=== PATIENT | male | born 1980 | race Hispanic/Latino ===

== ENCOUNTER 2020-06-17 09:33 | Inpatient (IN) | payer MEDICAID, OTHER ==
[~2020-06-17] VITALS: Ht 170.2 cm; Wt 133.5 kg
[2020-06-17] MEDS ORDERED: LORAZEPAM 2 MG/ML 1 ML VIAL ONE ×2 (09:36→09:42)
[2020-06-17 09:52] LABS: BASOPHILS % (AUTO) 0.8 % (0.0-5.0); EOSINOPHILS % (AUTO) 5.4 % (0.0-8.0); HEMATOCRIT 50.2 % (42-54); LYMPHOCYTES % (AUTO) 49.7 % (21.0-51.0); MEAN CORPUSCULAR HGB CONC 33.1 g/dL (32.0-36.0); MEAN CORPUSCULAR VOLUME 96.7 fL (79-99); MONOCYTES % (AUTO) 6.8 % (3.0-13.0); NEUTROPHILS % (AUTO) 36.7 % (40.0-77.0); PLATELET COUNT (AUTO) 386 K/uL (130-400); RED BLOOD CELL COUNT(AUTO) 5.19 MIL/uL (4.50-6.20); RED CELL DISTRIBUTION WIDTH 12.3 % (11.0-15.5); WHITE BLOOD COUNT (AUTO) 18.6 K/uL (4.8-10.8)
[2020-06-17] MEDS ORDERED: LEVETIRACETAM 500 MG/5 ML SD VIAL IV ONE (09:55)
[2020-06-17 10:03] LABS: CREATININE 1.3 mg/dL (0.5-1.5); POTASSIUM 3.4 mmol/L (3.5-5.1)
[2020-06-17 10:07] LABS: ALBUMIN 4.3 g/dL (3.5-5.0); BILIRUBIN,TOTAL 0.3 mg/dL (0.2-1.0); PHENYTOIN (DILANTIN) 4.1 mcg/mL (10.0-20.0); TOTAL PROTEIN, SERUM 8.7 g/dL (6.0-8.3)
[2020-06-17 10:08] LABS: CARBAMAZEPINE (TEGRETOL) 6.1 mcg/mL (4.0-12.0)
[2020-06-17] MEDS ORDERED: FOSPHENYTOIN SODIUM 500 MG/10ML VIAL IJ ONE (10:43)
[2020-06-17] MEDS ORDERED: SODIUM CHLORIDE 0.9% 250 ML IV ONE (10:44)
[2020-06-17 13:48] LABS: APPEARANCE,URINE Clear (CLEAR); BILIRUBIN,URINE Negative (NEGATIVE); COLOR,URINE Yellow (YELLOW); GLUCOSE, URINE (UA) Negative (NEGATIVE); KETONES,URINE Negative (NEGATIVE); LEUKOCYTE ESTERASE ,URINE Negative (NEGATIVE); NITRATE,URINE Negative (NEGATIVE); OCCULT BLOOD,URINE Trace (NEGATIVE); PROTEIN,URINE POS 1+ mg/dL (NEGATIVE); UROBILINOGEN,URINE 0.2 mg/dL (0.2-1.0)
[2020-06-17 13:54] LABS: AMPHET/METH SCREEN,URINE NEGATIVE (NEGATIVE); BARBITURATE SCREEN, URINE NEGATIVE (NEGATIVE); BENZODIAZEPINES SCREEN,URINE NEGATIVE (NEGATIVE); CANNABINOID SCREEN,URINE NEGATIVE (NEGATIVE); COCAINE SCREEN,URINE NEGATIVE (NEGATIVE); OPIATE SCREEN,URINE NEGATIVE (NEGATIVE); PHENCYCLIDINE SCREEN,URINE NEGATIVE (NEGATIVE)
[2020-06-17 14:03] LABS: BACTERIA,URINE Rare /HPF (None Seen); RBC,URINE 0-1 /HPF (0-1); SQUAMOUS EPITHELIAL CELL,UR Rare /HPF (0-2); WBC,URINE 0-1 /HPF (0-1)
[2020-06-17] MEDS ORDERED: LORAZEPAM 2 MG/ML 1 ML VIAL IVP PRN (19:00)
[2020-06-17] MEDS ORDERED: ACETAMINOPHEN 325 MG TAB PO PRN (19:00)
[2020-06-17] MEDS ORDERED: NITROGLYCERIN 0.4 MG SL TAB SL PRN (19:00)
[2020-06-17] MEDS ORDERED: LACTULOSE 20 GM/30 ML UDCUP PO PRN (19:00)
[2020-06-17] MEDS ORDERED: ONDANSETRON HCL 4 MG/2 ML VIAL IV PRN (19:00)
[2020-06-17] MEDS: POTASSIUM CHLORIDE 20 MEQ ERTAB PO SCH (19:00)
[2020-06-17] MEDS ORDERED: POTASSIUM CHLORIDE 20 MEQ ERTAB PO ONE (20:23)
[2020-06-17] MEDS ORDERED: LEVETIRACETAM 500 MG TABLET PO ONE (20:24)
[2020-06-17 20:36] LABS: ALBUMIN 3.5 g/dL (3.5-5.0); BILIRUBIN,DIRECT 0.1 mg/dL (0.0-0.3); BILIRUBIN,TOTAL 0.3 mg/dL (0.2-1.0); THYROID STIMULATING HORMONE 1.17 uIU/mL (0.36-3.74)
[2020-06-17] MEDS: LEVETIRACETAM 500 MG TABLET PO SCH (21:00)
[2020-06-17] MEDS ORDERED: POTASSIUM CHLORIDE 20 MEQ ERTAB PO SCH (23:00)
[2020-06-18 04:00] VITALS: BP 127/73
[2020-06-18] MEDS ORDERED: CARB200T6 PO ×2 (04:22)
[2020-06-18] MEDS ORDERED: PHEN100C9 PO (04:22)
[2020-06-18 06:45] LABS: BASOPHILS % (AUTO) 0.9 % (0.0-5.0); EOSINOPHILS % (AUTO) 6.2 % (0.0-8.0); HEMATOCRIT 38.8 % (42-54); LYMPHOCYTES % (AUTO) 38.1 % (21.0-51.0); MEAN CORPUSCULAR HEMOGLOBIN 32.2 pg (27.0-33.0); MEAN CORPUSCULAR HGB CONC 35.6 g/dL (32.0-36.0); MEAN CORPUSCULAR VOLUME 90.4 fL (79-99); MONOCYTES % (AUTO) 7.9 % (3.0-13.0); NEUTROPHILS % (AUTO) 46.7 % (40.0-77.0); PLATELET COUNT (AUTO) 258 K/uL (130-400); RED BLOOD CELL COUNT(AUTO) 4.29 MIL/uL (4.50-6.20); RED CELL DISTRIBUTION WIDTH 12.2 % (11.0-15.5); WHITE BLOOD COUNT (AUTO) 9.4 K/uL (4.8-10.8)
[2020-06-18 07:00] LABS: ALBUMIN 3.2 g/dL (3.5-5.0); BILIRUBIN,TOTAL 0.3 mg/dL (0.2-1.0); POTASSIUM 3.5 mmol/L (3.5-5.1); TOTAL PROTEIN, SERUM 6.8 g/dL (6.0-8.3)
[2020-06-18] MEDS ORDERED: LORAZEPAM 2 MG/ML 1 ML VIAL IVP PRN (07:00)
[2020-06-18 08:00] VITALS: BP 100/58
[2020-06-18] MEDS: LEVETIRACETAM 500 MG TABLET PO SCH ×2 (09:14→20:46)
[2020-06-18] MEDS: ENOXAPARIN SODIUM 30 MG/0.3 ML SQ SCH (09:15)
[2020-06-18] MEDS: CARBAMAZEPINE 200 MG TAB.ER.12H PO SCH ×2 (10:19→20:46)
[2020-06-18] MEDS: PHENYTOIN SODIUM 100 MG ERCAP PO SCH ×2 (10:19→20:46)
[2020-06-18 11:00] VITALS: BP 121/71
--- NOTE | 2020-06-18 13:50 | NUR ---
DEA MENDIOLA Spoke to patient's friend (Jill Christie) over the phone at patient's primary number on file. As per Jill, patient is independent with ADLs prior to this admission, has no dme or home services. Jill to assist with transportation at discharge. Preferred pharmacy is [facility] in [place]. CM to follow up. Addendum: 06/18/20 at 1353 by NAUN BIRCH Amended: Links added.
[2020-06-18 16:00] VITALS: BP_SYST 165; BP_SYST 99; BP_DIAS 51; BP_DIAS 54
[2020-06-18] MEDS: POTASSIUM CHLORIDE 20 MEQ ERTAB PO SCH (18:44)
--- NOTE | 2020-06-18 19:38 | NUR ---
DR. WELDON UPDATE DR. WELDON REQUESTED HE BE UPDATED ON MRI RESULTS VIA TEXT. RESULTS WERE SENT TO DR. WELDON AT APPROX 1147 HOURS BY TEXT.
[2020-06-18 20:01] VITALS: BP 114/87
[2020-06-19 00:12] VITALS: BP 114/70
[2020-06-19 04:00] VITALS: BP 115/80
[2020-06-19 05:40] LABS: BASOPHILS % (AUTO) 0.7 % (0.0-5.0); EOSINOPHILS % (AUTO) 6.2 % (0.0-8.0); HEMATOCRIT 39.8 % (42-54); LYMPHOCYTES % (AUTO) 42.3 % (21.0-51.0); MEAN CORPUSCULAR HEMOGLOBIN 31.7 pg (27.0-33.0); MEAN CORPUSCULAR HGB CONC 35.2 g/dL (32.0-36.0); MEAN CORPUSCULAR VOLUME 90.2 fL (79-99); MONOCYTES % (AUTO) 6.1 % (3.0-13.0); NEUTROPHILS % (AUTO) 44.4 % (40.0-77.0); PLATELET COUNT (AUTO) 261 K/uL (130-400); RED BLOOD CELL COUNT(AUTO) 4.41 MIL/uL (4.50-6.20); RED CELL DISTRIBUTION WIDTH 11.9 % (11.0-15.5); WHITE BLOOD COUNT (AUTO) 9.8 K/uL (4.8-10.8)
[2020-06-19 05:57] LABS: ALBUMIN 3.3 g/dL (3.5-5.0); BILIRUBIN,TOTAL 0.2 mg/dL (0.2-1.0); POTASSIUM 3.5 mmol/L (3.5-5.1); TOTAL PROTEIN, SERUM 6.9 g/dL (6.0-8.3)
[2020-06-19 07:55] VITALS: BP 126/77
--- NOTE | 2020-06-19 08:15 | NUR ---
AM ASSESSMENT PT LAYING IN BED, WATCHING TV. A/O X 3. NO SOB. NO DISTRESS NOTED. DENIES CHEST PAIN OR DISCOMFORT. TELE: SR. DENIES N/V AND/OR DIARRHEA. UP AD ADRI. SEIZURE PRECAUTIONS IN PLACE. INSTRUCTED TO CALL FOR ASSISTANCE. CALL ADDIE W/IN REACH.
[2020-06-19] MEDS: CARBAMAZEPINE 200 MG TAB.ER.12H PO SCH (08:43)
[2020-06-19] MEDS: LEVETIRACETAM 500 MG TABLET PO SCH (08:43)
[2020-06-19] MEDS: PHENYTOIN SODIUM 100 MG ERCAP PO SCH (08:43)
[2020-06-19] MEDS: ENOXAPARIN SODIUM 30 MG/0.3 ML SQ SCH (08:49)
[2020-06-19] MEDS ORDERED: PHENY100 PO ×2 (10:39)
[2020-06-19] MEDS ORDERED: CARB-119 PO ×2 (10:39)
[2020-06-19] MEDS ORDERED: LEVE-43 PO ×2 (10:39)
--- NOTE | 2020-06-19 11:26 | NUR ---
MD NOTIFICATION [facility] TOT 476. DR ARIZA NOTIFIED. MAY CONTINUE TO DISCHARGE PT HOME TODAY.
[2020-06-19 11:38] VITALS: BP 125/69
--- NOTE | 2020-06-19 12:43 | NUR ---
DISCHARGE VERBAL & WRITTEN DISCHARGE INSTRUCTIONS REVIEWED & GIVEN TO PT. QUESTIONS ENCOURAGED & CLARIFIED. PROPER CARE & MGT OF SEIZURES REVIEWED. NEW PRESCRIBED MEDICATIONS REVIEWED W/PT. PRESCRIPTION GIVEN TO PT. SIGNED COPY OF PRESCRIPTION PLACED IN CHART. TELE MARTÍNEZ REMOVED. IV DC'D. PT TO GATHER PERSONAL BELONGINGS. WILL NOTIFY STAFF WHEN READY TO BE TAKEN TO PRIVATE VEHICLE.
--- NOTE | 2020-06-19 12:56 | NUR ---
RELEASE OF MEDICAL RECORDS PT SPOKE TO MEDICAL RECORDS REGARDING RELEASE OF RECORDS FOR F/U W/NEUROLOGIST. PT TO FILL UP & SIGN RELEASE OF MEDICAL RECORDS FORM. INFORMATION TO WHO MEDICAL INFO MAY BE RELEASED TO BE WRITTEN IN FORM. FORM FILLED OUT & SIGNED BY PT. FORM PLACED IN FRONT OF CHART. PT INFORMED MEDICAL RECORDS TO CALL WHEN RECORD READY FOR RING FACER.
== END 2020-06-19 13:35 | disposition home or self-care (01) | DRG 101 ==
LOC: EDH 09:33 → EDHIP 09:34 → 4AH 06-18 02:30
PROVIDERS: ADMIT Hospitalist; ATTEND Hospitalist
DX: G40.911 Epilepsy, unspecified, intractable, with status epilepticus (principal); Z68.42 Body mass index [BMI] 45.0-49.9, adult; E66.9 Obesity, unspecified; E11.9 Type 2 diabetes mellitus without complications; Z87.828 Personal history of other (healed) physical injury and trauma
CPT/HCPCS: 36415; 70450; 70551; 71045; 80053; 80076; 80156; 80185; 80305; 81001; 82140; 82550; 84443; 85025; 93306; 93356; G0378; J1650; J1953; J2060; J7050; Q2009

== ENCOUNTER 2020-06-20 04:19 | Emergency (ER) | payer SELFPAY ==
[~2020-06-20 04:19] MED LIST: CARB-119 PO; CARB200T6 PO; LEVE-43 PO; PHEN100C9 PO; PHENY100 PO
[2020-06-20] MEDS ORDERED: LEVETIRACETAM 500 MG/5 ML SD VIAL IV ONE (04:47)
[2020-06-20 05:01] LABS: BASOPHILS % (AUTO) 0.8 % (0.0-5.0); EOSINOPHILS % (AUTO) 5.8 % (0.0-8.0); HEMATOCRIT 42.8 % (42-54); LYMPHOCYTES % (AUTO) 38.3 % (21.0-51.0); MEAN CORPUSCULAR HEMOGLOBIN 32.4 pg (27.0-33.0); MEAN CORPUSCULAR HGB CONC 35.7 g/dL (32.0-36.0); MEAN CORPUSCULAR VOLUME 90.7 fL (79-99); MONOCYTES % (AUTO) 6.1 % (3.0-13.0); NEUTROPHILS % (AUTO) 48.7 % (40.0-77.0); PLATELET COUNT (AUTO) 310 K/uL (130-400); RED BLOOD CELL COUNT(AUTO) 4.72 MIL/uL (4.50-6.20); WHITE BLOOD COUNT (AUTO) 10.4 K/uL (4.8-10.8)
[2020-06-20 05:17] LABS: POTASSIUM 3.8 mmol/L (3.5-5.1)
[2020-06-20 05:20] LABS: ALBUMIN 3.8 g/dL (3.5-5.0); BILIRUBIN,TOTAL 0.3 mg/dL (0.2-1.0); PHENYTOIN (DILANTIN) 6.7 mcg/mL (10.0-20.0); TOTAL PROTEIN, SERUM 7.8 g/dL (6.0-8.3)
[2020-06-20] MEDS ORDERED: PHENYTOIN SODIUM 100 MG ERCAP PO ONE (05:28)
== END 2020-06-20 06:50 | disposition home or self-care (01) ==
LOC: EDH 04:19
DX: G40.89 Other seizures (principal); R20.2 Paresthesia of skin; E11.9 Type 2 diabetes mellitus without complications; Z72.0 Tobacco use
CPT/HCPCS: 36415; 80053; 80185; 85025; 96365; 96366; 99284; J1953

== ENCOUNTER 2020-06-22 06:35 | Inpatient (IN) | payer OTHER ==
[~2020-06-22] VITALS: Ht 167.6 cm; Wt 130.0 kg
[~2020-06-22 06:35] MED LIST changes: -CARB200T6 PO; -PHEN100C9 PO
[2020-06-22 07:49] LABS: BASOPHILS % (AUTO) 0.9 % (0.0-5.0); EOSINOPHILS % (AUTO) 8.8 % (0.0-8.0); HEMATOCRIT 43.3 % (42-54); LYMPHOCYTES % (AUTO) 31.3 % (21.0-51.0); MEAN CORPUSCULAR HEMOGLOBIN 31.7 pg (27.0-33.0); MEAN CORPUSCULAR HGB CONC 35.1 g/dL (32.0-36.0); MEAN CORPUSCULAR VOLUME 90.4 fL (79-99); MONOCYTES % (AUTO) 6.2 % (3.0-13.0); NEUTROPHILS % (AUTO) 52.5 % (40.0-77.0); PLATELET COUNT (AUTO) 296 K/uL (130-400); RED BLOOD CELL COUNT(AUTO) 4.79 MIL/uL (4.50-6.20); RED CELL DISTRIBUTION WIDTH 12.2 % (11.0-15.5); WHITE BLOOD COUNT (AUTO) 9.4 K/uL (4.8-10.8)
[2020-06-22 08:13] LABS: ALBUMIN 3.8 g/dL (3.5-5.0); BILIRUBIN,TOTAL 0.2 mg/dL (0.2-1.0); POTASSIUM 3.5 mmol/L (3.5-5.1); TOTAL PROTEIN, SERUM 7.8 g/dL (6.0-8.3)
[2020-06-22 08:31] LABS: PHENYTOIN (DILANTIN) 6.7 mcg/mL (10.0-20.0)
[2020-06-22] MEDS ORDERED: PHENYTOIN SODIUM 100 MG ERCAP PO SCH (09:30)
[2020-06-22] MEDS ORDERED: PHENYTOIN SODIUM 100 MG ERCAP PO ONE (10:21)
[2020-06-22] MEDS ORDERED: MEPERIDINE-PF 25 MG/ML SYG IV PRN (11:45)
[2020-06-22] MEDS ORDERED: DEXTROSE 50%-WATER 50 ML DISP.SYRIN IV PRN (12:00)
[2020-06-22] MEDS ORDERED: GLUCAGON 1MG KIT 1 MG ML IM PRN (12:00)
[2020-06-22 14:06] LABS: HEMOGLOBIN A1C 5.5 % (4.0-6.0)
[2020-06-22] MEDS ORDERED: INSULIN HUMULIN R 100 UNIT/ML 3ML SQ SCH (16:30)
[2020-06-22 17:54] LABS: APPEARANCE,URINE Clear (CLEAR); BILIRUBIN,URINE Negative (NEGATIVE); COLOR,URINE Yellow (YELLOW); GLUCOSE, URINE (UA) Negative (NEGATIVE); KETONES,URINE Negative (NEGATIVE); LEUKOCYTE ESTERASE ,URINE Negative (NEGATIVE); NITRATE,URINE Negative (NEGATIVE); OCCULT BLOOD,URINE Negative (NEGATIVE); PH,URINE 5.5 (5.0-8.0); PROTEIN,URINE POS 1+ mg/dL (NEGATIVE); UROBILINOGEN,URINE 0.2 mg/dL (0.2-1.0)
[2020-06-22 18:29] LABS: BACTERIA,URINE Rare /HPF (None Seen); MUCUS,URINE Few LPF (None Seen); RBC,URINE 0-1 /HPF (0-1); SQUAMOUS EPITHELIAL CELL,UR Rare /HPF (0-2); WBC,URINE 0-1 /HPF (0-1)
[2020-06-22] MEDS ORDERED: FAMOTIDINE/PF 20 MG/2 ML VIAL IV ONE (20:18)
[2020-06-22] MEDS: FAMOTIDINE/PF 20 MG/2 ML VIAL IV SCH (21:00)
[2020-06-22 21:07] VITALS: BP 131/85
[2020-06-23] VITALS: BP 126/77
--- NOTE | 2020-06-23 00:26 | NUR ---
ROUNDS PT RESTING IN BED WATCHING TV. NO C/O PAIN, NO DISTRESS NOTED. PT ON RA, EVEN, UNLABORED RESP. SZ/ FALL PRECAUTIONS REMAIN IN PLACE.
[2020-06-23 04:00] VITALS: BP 127/72
--- NOTE | 2020-06-23 04:48 | NUR ---
SZ ACTIVITY EPISODE PT MADE A LOUD YELL, UPON ENTERING THE ROOM PT HAD HIS ARMS RAISED AND IN A JERKING MOTION. PT UNABLE TO RESPOND. PT LAYING DOWN IN BED WITH SZ PRECAUTIONS IN PLACE. PT'S EYES WERE ROLLING BACK AND BEGAN DROOLING- SUCTIONED SECRETIONS TO PREVENT ASPIRATION. THIS EPISODE LASTED 35-40 SECONDS. MACHINE SHOP REPAIR TECHNICIAN CALLED TO REPORT PT SINUS TACH IN THE 130S- PREVIOUSLY IN THE LOW TO MID 80S. NC PLACED AT 3 LPM TO MAINTAIN SATS. NO PRN ANTICONVULSANT MEDICATION ORDERED, PAGED ONCALL. SPOKE WITH YELENA PATEL NP WHO PLACED ATIVAN 2 MG VIA IV X1 ORDER TO GIVE NOW. ATIVAN 2MG VIA IV WAS ADMIN @ 0508. PT CONT TO DISPLAY SZ ACTIVITY WITH ARMS JERKING IN THE AIR, UNABLE TO MAKE VISUAL CONTACT OR RESPOND. BILAT LE SHAKING. 0512- PT RESTING WITH HIS EYES CLOSED. PT BREATHING RAPID AND SHALLOW, RR25. O2 SAT 98-100% ON 3 L VIA NC, HR 86, BP 138/83. PT AUROUSABLE TO TOUCH AND LIGHT VOICE. PT HAS SOME CONFUSION TO WHERE HE IS AT, WHEN REORIENTED TO PLACE PT JUST SAYS "OK" AND CLOSES HIS EYES. SECOND IV WAS PLACED ON LEFT AC. 20 GAUGE, SALINE LOCKED. BED ALARM ON, CALL LIGHT WITHIN REACH. PADDING ON BED RAILS X2. SUCTION CANISTER CONNECTED AND READY FOR USE. DOOR LEFT OPEN FOR CONT MONITORING.
[2020-06-23] MEDS ORDERED: LORAZEPAM 2 MG/ML 1 ML VIAL ONE (05:04)
[2020-06-23] MEDS ORDERED: LORAZEPAM 2 MG/ML 1 ML VIAL IVP PRN (05:15)
[2020-06-23] MEDS: INSULIN HUMULIN R 100 UNIT/ML 3ML SQ SCH ×4 (06:00→18:00)
[2020-06-23] MEDS: SODIUM CHLORIDE 0.9% 1000ML 1,000 ML IV SCH ×2 (06:56→17:45)
[2020-06-23] MEDS ORDERED: LEVETIRACETAM 500 MG TABLET PO SCH (09:00)
[2020-06-23] MEDS ORDERED: CARBAMAZEPINE 200 MG TABLET PO SCH ×3 (09:00→21:00)
[2020-06-23] MEDS ORDERED: CARBAMAZEPINE 200 MG TAB.ER.12H PO SCH (09:00)
[2020-06-23] MEDS ORDERED: LEVETIRACETAM 500 MG in SODIUM CHLORIDE 0.9% 100 ML IV SCH ×2 (09:00→10:00)
[2020-06-23] MEDS: ENOXAPARIN SODIUM 30 MG/0.3 ML SQ SCH (09:44)
[2020-06-23] MEDS: FAMOTIDINE/PF 20 MG/2 ML VIAL IV SCH ×2 (09:47→20:22)
[2020-06-23 09:54] VITALS: BP 120/77
[2020-06-23] MEDS: PHENYTOIN SODIUM 100 MG ERCAP PO SCH ×2 (11:25→20:22)
[2020-06-23] MEDS: CARBAMAZEPINE 200 MG TAB.ER.12H PO SCH (11:25)
[2020-06-23] MEDS ORDERED: COMPOUND IV MISC 1 EACH IVSOLN MISC PRN (12:00)
[2020-06-23 17:20] LABS: AMPHET/METH SCREEN,URINE NEGATIVE (NEGATIVE); BARBITURATE SCREEN, URINE NEGATIVE (NEGATIVE); BENZODIAZEPINES SCREEN,URINE NEGATIVE (NEGATIVE); CANNABINOID SCREEN,URINE NEGATIVE (NEGATIVE); COCAINE SCREEN,URINE NEGATIVE (NEGATIVE); OPIATE SCREEN,URINE NEGATIVE (NEGATIVE); PHENCYCLIDINE SCREEN,URINE NEGATIVE (NEGATIVE)
--- NOTE | 2020-06-23 17:36 | NUR ---
Lives w/friends/Jill Campos [phone] who will provide transp home at d/c. Pt. was indep prior to admission, no [facility], HH; [facility] for [facility]. Pt. is not employed and [facility] assisting w/financials. Community [facility] Pckt provided; feels safe returning home. Addendum: 06/23/20 at 1737 by SHARLENE SEPANA Amended: Links added.
[2020-06-23 18:59] VITALS: BP 112/82
[2020-06-23 19:30] VITALS: BP 130/90
[2020-06-23] MEDS ORDERED: HYDROCODONE/ACETAMINOPHEN 5/325 MG TAB PO PRN ×2 (19:45)
[2020-06-23] MEDS: LEVETIRACETAM 1,000 MG in SODIUM CHLORIDE 0.9% 100 ML IV SCH (20:21)
[2020-06-24] VITALS: BP 113/59
--- NOTE | 2020-06-24 00:08 | NUR ---
Nursing Note-3.24 sec pause Spoke with Jack Jean [employer] TRUCK DRIVER, Informed about Pt's 3.24 sec pause. She gave orders to do an EKG, get the telemetry strip and make sure the pt has O2 1-2 L NC as needed. She also said she would come up and speak with the patient.
[2020-06-24 04:00] VITALS: BP 123/72
[2020-06-24] MEDS: SODIUM CHLORIDE 0.9% 1000ML 1,000 ML IV SCH ×2 (04:16→12:59)
[2020-06-24 05:33] LABS: BASOPHILS % (AUTO) 0.8 % (0.0-5.0); EOSINOPHILS % (AUTO) 6.3 % (0.0-8.0); HEMATOCRIT 40.2 % (42-54); LYMPHOCYTES % (AUTO) 41.4 % (21.0-51.0); MEAN CORPUSCULAR HEMOGLOBIN 31.5 pg (27.0-33.0); MEAN CORPUSCULAR HGB CONC 34.6 g/dL (32.0-36.0); MEAN CORPUSCULAR VOLUME 91.2 fL (79-99); MONOCYTES % (AUTO) 6.9 % (3.0-13.0); NEUTROPHILS % (AUTO) 44.3 % (40.0-77.0); PLATELET COUNT (AUTO) 270 K/uL (130-400); RED BLOOD CELL COUNT(AUTO) 4.41 MIL/uL (4.50-6.20); RED CELL DISTRIBUTION WIDTH 12.1 % (11.0-15.5)
[2020-06-24 05:38] LABS: CREATININE 0.9 mg/dL (0.5-1.5); MAGNESIUM 2.3 mg/dL (1.80-2.40); POTASSIUM 3.6 mmol/L (3.5-5.1)
[2020-06-24] MEDS: INSULIN HUMULIN R 100 UNIT/ML 3ML SQ SCH ×4 (05:47→18:00)
--- NOTE | 2020-06-24 06:34 | NUR ---
Nursing Note-PCR ER nurse collected PCR
[2020-06-24] MEDS: LEVETIRACETAM 1,000 MG in SODIUM CHLORIDE 0.9% 100 ML IV SCH (08:56)
[2020-06-24] MEDS: FAMOTIDINE/PF 20 MG/2 ML VIAL IV SCH (08:57)
[2020-06-24] MEDS: CARBAMAZEPINE 200 MG TAB.ER.12H PO SCH (08:57)
[2020-06-24] MEDS: PHENYTOIN SODIUM 100 MG ERCAP PO SCH (08:58)
[2020-06-24] MEDS: ENOXAPARIN SODIUM 30 MG/0.3 ML SQ SCH (08:59)
[2020-06-24] MEDS ORDERED: CARBAMAZEPINE 200 MG TAB.ER.12H PO SCH (09:00)
[2020-06-24 09:03] VITALS: BP 132/94
[2020-06-24 11:00] VITALS: BP 141/74
[2020-06-24 16:26] VITALS: BP 107/57
[2020-06-24] MEDS ORDERED: PHEN200C5 PO (17:54)
[2020-06-24] MEDS ORDERED: CARB200T6 PO (17:54)
[2020-06-24] MEDS ORDERED: LEVE1000 PO (17:54)
[2020-06-24] MEDS ORDERED: CARB-119 PO (17:54)
--- NOTE | 2020-06-25 10:29 | NUR ---
TRANSITIONAL CARE -- Post-Discharge Note Spoke with the patient's friend, Jill, over the phone at primary number listed. As per Ms Jill, she says did experience small seizure activity this morning, but "nothing over a few seconds". She states the patient is currently resting but was awake intermittently this morning. She states the patient is taking his discharge medications as ordered. She is aware of his follow up appointments and assures me he will keep them. I encouraged her to seek medical attention if these seizures continued through out the day. She acknowledged and agreed she would, should he continue with seizures. I told her to call 911 immediately if the patient experienced a seizure lasting over 5 minutes. No complaints of SOB, CP, fever/chills, N/V/D.
== END 2020-06-24 20:00 | disposition home or self-care (01) | DRG 101 ==
LOC: EDH 06:35 → EDHIP 06:36 → 4AH 21:07
PROVIDERS: ADMIT Hospitalist; ATTEND Hospitalist
DX: G40.911 Epilepsy, unspecified, intractable, with status epilepticus (principal); E11.9 Type 2 diabetes mellitus without complications; Z20.828 Contact with and (suspected) exposure to other viral communicable diseases; Z82.49 Family history of ischemic heart disease and other diseases of the circulatory system
CPT/HCPCS: 36415; 70450; 80048; 80053; 80156; 80185; 80305; 81001; 82948; 83036; 83735; 84443; 85025; 87426; 93005; G0378; J1650; J1953; J2060; J3490; J7030; U0003

== ENCOUNTER 2021-10-13 13:42 | Emergency (ER) | payer MEDICAID ==
[~2021-10-13] VITALS: Ht 170.2 cm; Wt 136.1 kg
[~2021-10-13 13:42] MED LIST changes: +CARB200T6 PO; -LEVE-43 PO; +LEVE1000 PO; +PHEN200C5 PO; -PHENY100 PO
[2021-10-13 13:47] VITALS: BP 125/81
[2021-10-13] MEDS ORDERED: 0.9%NACL 1000ML 1,000 ML IV SCH (14:00)
[2021-10-13 14:26] LABS: BASOPHILS % (AUTO) 0.7 % (0.0-5.0); EOSINOPHILS % (AUTO) 2.4 % (0.0-8.0); HEMATOCRIT 40.3 % (42-54); LYMPHOCYTES % (AUTO) 33.6 % (21.0-51.0); MEAN CORPUSCULAR HEMOGLOBIN 31.6 pg (27.0-33.0); MEAN CORPUSCULAR HGB CONC 35.2 g/dL (32.0-36.0); MEAN CORPUSCULAR VOLUME 89.6 fL (79-99); MONOCYTES % (AUTO) 5.6 % (3.0-13.0); NEUTROPHILS % (AUTO) 57.3 % (40.0-77.0); PLATELET COUNT (AUTO) 283 K/uL (130-400); RED CELL DISTRIBUTION WIDTH 12.2 % (11.0-15.5); WHITE BLOOD COUNT (AUTO) 10.7 K/uL (4.8-10.8)
[2021-10-13] MEDS ORDERED: KETOROLAC 30MG VIAL (30MG/ML) IVP ONE (14:30)
[2021-10-13] MEDS ORDERED: KETOROLAC 30MG VIAL (30MG/ML) IVP SCH (14:30)
[2021-10-13 14:38] LABS: CREATININE 0.8 mg/dL (0.5-1.5); POTASSIUM 3.5 mmol/L (3.5-5.1)
[2021-10-13 14:42] LABS: ALBUMIN 3.5 g/dL (3.5-5.0); BILIRUBIN,TOTAL 0.2 mg/dL (0.2-1.0); TOTAL PROTEIN, SERUM 7.2 g/dL (6.0-8.3)
[2021-10-13 15:22] LABS: APPEARANCE,URINE Clear (CLEAR); BILIRUBIN,URINE Negative (NEGATIVE); COLOR,URINE Dark Yellow (YELLOW); GLUCOSE, URINE (UA) Negative (NEGATIVE); KETONES,URINE Trace mg/dL (NEGATIVE); LEUKOCYTE ESTERASE ,URINE Negative (NEGATIVE); NITRATE,URINE Negative (NEGATIVE); OCCULT BLOOD,URINE Negative (NEGATIVE); PH,URINE 5.5 (5.0-8.0); PROTEIN,URINE POS 1+ mg/dL (NEGATIVE)
[2021-10-13 15:41] LABS: BACTERIA,URINE Few /HPF (None Seen); MUCUS,URINE Moderate LPF (None Seen); RBC,URINE 0-1 /HPF (0-1); SQUAMOUS EPITHELIAL CELL,UR Rare /HPF (0-2); WBC,URINE 0-1 /HPF (0-1)
[2021-10-13] MEDS ORDERED: NAPR500T6 PO (15:42)
[2021-10-14] MEDS ORDERED: ONDA4TAB10 PO (03:26)
[2021-10-14] MEDS ORDERED: METO-296 PO (03:26)
[2021-10-14] MEDS ORDERED: TAMS-1 PO (03:26)
[2021-10-14] MEDS ORDERED: DICY20TA2 PO (03:26)
[2021-10-14] MEDS ORDERED: PANT40TA PO (03:26)
[2021-10-14] MEDS ORDERED: MELO7.5T12 PO (03:26)
== END 2021-10-13 15:58 | disposition home or self-care (01) ==
LOC: EDH 13:42
DX: N20.0 Calculus of kidney (principal); G40.909 Epilepsy, unspecified, not intractable, without status epilepticus; Z79.899 Other long term (current) drug therapy
CPT/HCPCS: 36415; 74176; 80053; 81001; 83690; 85025; 96361; 96374; 99284; J1885; J7030

== ENCOUNTER 2021-10-14 01:39 | Emergency (ER) | payer MEDICAID ==
[~2021-10-14] VITALS: Ht 167.6 cm; Wt 136.1 kg
[~2021-10-14 01:39] MED LIST changes: +NAPR500T6 PO
[2021-10-14 01:44] VITALS: BP 142/78
[2021-10-14] MEDS ORDERED: ONDANSETRON 4MG INJ IVP ONE (02:30)
[2021-10-14] MEDS ORDERED: 0.9%NACL 1000ML 1,000 ML IV ONE ×2 (02:30→02:46)
[2021-10-14] MEDS ORDERED: PANTOPRAZOLE 40 MG/VIAL IVP ONE (02:30)
[2021-10-14] MEDS ORDERED: METOCLOPRAMIDE 10 MG/2 ML VIAL IVP ONE (02:30)
[2021-10-14] MEDS ORDERED: KETOROLAC 30MG VIAL (30MG/ML) IVP ONE (02:30)
[2021-10-14] MEDS ORDERED: FAMOTIDINE 20MG VIAL IV ONE ×2 (02:30→02:46)
[2021-10-14] MEDS ORDERED: METOCLOPRAMIDE 10 MG/2 ML VIAL ONE (02:45)
[2021-10-14] MEDS ORDERED: ONDANSETRON 4MG INJ ONE (02:45)
[2021-10-14] MEDS ORDERED: KETOROLAC 30MG VIAL (30MG/ML) ONE (02:46)
[2021-10-14] MEDS ORDERED: PANTOPRAZOLE 40 MG/VIAL ONE (02:46)
[2021-10-14] MEDS ORDERED: TAMS-1 PO (03:26)
[2021-10-14] MEDS ORDERED: ONDA4TAB10 PO (03:26)
[2021-10-14] MEDS ORDERED: METO-296 PO (03:26)
[2021-10-14] MEDS ORDERED: DICY20TA2 PO (03:26)
[2021-10-14] MEDS ORDERED: PANT40TA PO (03:26)
[2021-10-14] MEDS ORDERED: MELO7.5T12 PO (03:26)
== END 2021-10-14 03:52 | disposition home or self-care (01) ==
LOC: EDH 01:39
DX: R11.0 Nausea (principal); R10.31 Right lower quadrant pain; K44.9 Diaphragmatic hernia without obstruction or gangrene; F17.200 Nicotine dependence, unspecified, uncomplicated; Z87.442 Personal history of urinary calculi; Z79.899 Other long term (current) drug therapy
CPT/HCPCS: 96361; 96374; 96375; 99284; J1885; J2405; J2765; J7030; S0028; S0164; C9113; J3490